=== PATIENT | female | born 1955 | race Two or more races ===

== ENCOUNTER 2023-09-26 09:25 | Emergency (ER) | payer OTHER ==
[~2023-09-26] VITALS: Ht 160 cm; Wt 74.8 kg
[2023-09-26] MEDS ORDERED: ZESTRIL10 M1 PO (09:39)
[2023-09-26] MEDS ORDERED: GLUMETZA500 MG PO (09:39)
[2023-09-26] MEDS ORDERED: SIMVASTATIN5 MG PO (09:39)
[2023-09-26] MEDS ORDERED: SINGULAIR10 MG PO (09:39)
[2023-09-26] MEDS ORDERED: ORPHENADRINE CITRATE 30 MG/ML AMPUL IM ONE (11:30)
[2023-09-26] MEDS ORDERED: KETOROLAC TROMETHAMINE 60 MG VIAL IM ONE (11:30)
== END 2023-09-26 13:47 ==
LOC: ER 09:25
DX: S83.92XA Sprain of unspecified site of left knee, initial encounter (principal); W19.XXXA Unspecified fall, initial encounter; Y93.89 Activity, other specified; Y92.018 Other place in single-family (private) house as the place of occurrence of the external cause; Y99.9 Unspecified external cause status
CPT/HCPCS: 73560; 73590; 96372; 99284; J1885; J2250